=== PATIENT | female | born 1990 | race Caucasian/White ===

== ENCOUNTER 2023-05-20 11:15 | Outpatient (RCR) | payer BC, SELFPAY | END 2023-09-17 23:59 | disposition home or self-care (01) | PROVIDERS: Visit Provider Nurse Practitioner Family | DX: H81.11 Benign paroxysmal vertigo, right ear (principal); R26.81 Unsteadiness on feet; M54.2 Cervicalgia; Z51.89 Encounter for other specified aftercare | CPT/HCPCS: 97110; 97162 ==